=== PATIENT | male | born 1935 | race Caucasian/White ===

== ENCOUNTER 2017-04-07 10:13 | Outpatient (CLI) | payer OTHER | END 2017-04-08 15:48 | disposition home or self-care (01) | LOC: LAB SRH 10:13 | DX: R31.9 Hematuria, unspecified (principal) | CPT/HCPCS: 90074; 90100; 94060; 95059 ==

== ENCOUNTER 2017-04-10 09:16 | Outpatient (CLI) | payer OTHER ==
--- NOTE | 2017-04-10 11:40 | DIAGNOSTIC IMAGING REPORT ---
PROCEDURE: CT IVP CLINICAL INDICATION: Gross, painless hematuria, prior history of colon cancer TECHNIQUE: Initially, noncontrast axial images were obtained of the entire abdomen and pelvis. 125 ml of Isovue 300 was injected intravenously, and axial images were obtained of the kidneys in the nephrographic phase, and subsequently through the entire abdomen and pelvis in the excretory phase. Axial CT images through the pelvis in the delayed phase were obtained. Sagittal and coronal reformations were created. COMPARISON: None. FINDINGS: NONCONTRAST ABDOMEN: 3 mm nonobstructing left lower pole intrarenal calculus. There are two coarse calcifications of the centrally in the liver. No splenic calcifications. Moderate calcific atherosclerosis of the abdominal aorta. CONTRAST ABDOMEN: The kidneys uptake and excrete IV contrast uniformly and symmetrically. 15 mm right lower pole parapelvic cyst. Other sub-centimeter partially exophytic cystic structures in each kidney. No solid renal mass. The excretory images demonstrate no filling defects in the intrarenal or ureteral collecting system. The course of the mid and distal ureters is drawn medially secondary to postsurgical changes the retroperitoneum, likely prior lymph node dissection. Patchy right posterior lower lobe atelectasis. No suspicious nodules or effusions. Slight pericardial thickening. There are multiple cystic structures in the liver, mainly in the left hepatic lobe. The largest measures 3.5 cm. The largest in the right measures about 1.9 cm. The gallbladder is surgically absent. Normal adrenal glands, pancreas, and spleen. There are surgical changes along the anterior abdominal wall, clips in the right abdomen around the colon and scattered in the mesentery of the mid to lower abdomen and retroperitoneum. Multiple clips are seen in the perirectal and presacral fat. There is a mildly prominent lymph node at the aortic bifurcation measuring about 9 mm in short axis. No other retroperitoneal or mesenteric adenopathy. NONCONTRAST PELVIS: A few coarse calcifications in the minimally enlarged prostate gland. No distal ureteral calcifications or bladder calcifications. Minor calcific atherosclerosis. CONTRAST PELVIS: The urinary bladder demonstrates normal wall thickness without suspicious irregularity. No bladder mass or unusual enhancement. The reproductive organs are normal for age. Pelvic vessels are normal. No suspicious mass or free pelvic fluid. 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 Age appropriate degenerative changes in the spine. IMPRESSION: 1. Etiology of gross hematuria is not identified. 2. 3 mm nonobstructing left lower pole intrarenal calcification. 3. Surgical clips scattered throughout the abdomen and retroperitoneum. Medial deviation of both mid to distal ureters, probably from the surgical changes/ other treatment. No suspicious tissue surrounding ureters. 4. Single prominent lymph node at the aortic bifurcation. 5. Hepatic cysts. All CT scans at this facility use dose modulation, iterative reconstruction, and/or weight-based dosing when appropriate to reduce radiation dose to as low as reasonably achievable.
== END 2017-04-10 23:00 | disposition home or self-care (01) ==
LOC: CT SRH 09:16
DX: R31.9 Hematuria, unspecified (principal); N20.0 Calculus of kidney